=== PATIENT | female | born 1965 | race Two or more races ===

== ENCOUNTER 2019-03-13 10:15 | Emergency (ER) | payer SELFPAY ==
[~2019-03-13] VITALS: Ht 152.4 cm; Wt 63.5 kg
[2019-03-13 10:26] VITALS: BP 157/70
[2019-03-13] MEDS ORDERED: UNOBMED (10:26)
--- NOTE | 2019-03-13 10:39 | Emergency Room Report ---
History of Present Illness General Chief Complaint: Earache Source: Patient Present Illness HPI Patient presents with complaints of increased hearing loss reports that about a month ago she had cold-like symptoms with runny nose and congestion About 7 to 10 days after that she started having decreased hearing from the right ear over the past several days now she feels Decreased hearing from the left ear Denies any headache there was some report of pressure on both temporal areas however denies any visual changes denies any chest pain or shortness of breath Denies any Dizzy symptoms denies any recent loud noise or trauma Allergies: Coded Allergies: No Known Allergies (Unverified , 03/13/19) Patient History Past Medical History: see triage record Pertinent Family History: none Last Menstrual Period: menopause Reviewed Nursing Documentation: PMH: Agreed; PSxH: Agreed Nursing Documentation-PMH Past Medical History: No History, Except For Hx Hypertension: Yes Review of Systems All Other Systems: negative except mentioned in HPI Physical Exam Vital Signs Date Time Temp Pulse Resp B/P (MAP) Pulse Ox O2 Delivery O2 Flow Rate FiO2 03/13/19 10:22 98.4 57 16 157/70 (99) 97 Room Air Sp02 EP Interpretation: reviewed, normal General Appearance: well appearing, no apparent distress Head: normocephalic, atraumatic Eyes: bilateral eye PERRL, bilateral eye EOMI ENT: normal pharynx, uvula midline, other - Patient is able to hear shuffling of fingers on both sides however feels somewhat decreased in the right compared to the left,, tympanic membranes are intact there is some mild bulging bilaterally, indicative of possible fluid canal is clear Neck: full range of motion, supple, no meningismus, no bony tend Respiratory: lungs clear, normal breath sounds, no rhonchi, no respiratory distress, no retraction, no accessory muscle use Cardiovascular #1: normal peripheral pulses, regular rate, rhythm, no edema, no gallop, no JVD, no murmur Gastrointestinal: normal bowel sounds, non tender, soft, no mass, no organomegaly, non-distended, no guarding, no hernia, no pulsatile mass, no rebound Genitourinary: no CVA tenderness Musculoskeletal: normal inspection Neurologic: oriented x3, responsive, motor strength/tone normal, sensory intact Psychiatric: mood/affect normal Skin: no rash Lymphatic: normal inspection, no adenopathy Medical Decision Making Diagnostic Impression: Primary Impression: Hearing loss ER Course Given the history exam and presentation patient's other neurological exam is otherwise at baseline levels There is some relation with URI symptoms patient will be treated conservatively at this time I do not see the patient meeting criteria for acute MRI or further testing Patient will have close follow-up with her primary physician for further ENT referral as needed Last Vital Signs Date Time Temp Pulse Resp B/P (MAP) Pulse Ox O2 Delivery O2 Flow Rate FiO2 03/13/19 10:26 98.4 16 157/70 97 Room Air 03/13/19 10:22 57 Status: unchanged Disposition: HOME, SELF-CARE Condition: Stable Referrals: NOT CHOSEN IPA/MD,REFERRING (PCP) Additional Instructions: Patient is provided with the discharge instructions notified to follow up with primary doctor in the next 2-3 days otherwise return to the er with any worsening symptoms. Please note that this report is being documented using [employer] technology. This can lead to erroneous entry secondary to incorrect interpretation by the dictating instrument. Trevin Ragland DO Mar 13, 2019 10:39
--- NOTE | 2019-03-13 10:42 | NUR ---
ED Nurse Note: pt walked in from home c/o bilateral hearing loss x 3 weeks and feeling numbness on LT and RT side of her head ermd eval done awaiting nsg orders . pt does not recall her home meds.
[2019-03-13] MEDS ORDERED: ZYRTEC10 MG ORAL (10:46)
[2019-03-13] MEDS ORDERED: MEDROL DOSEPAK4 MG ORAL (10:46)
[2019-03-13 10:53] VITALS: BP 157/70
--- NOTE | 2019-03-13 10:54 | NUR ---
ED Nurse Note: No NSG orders Pt cleared by health care Provider for discharge. DC instructions/prescription was given and explained to pt and verbalized understanding of teachings. All medical deviecs such as ID band removed. Pt is AAO x4, ambulatory with steady gait and left with all personal belongings.
== END 2019-03-13 10:56 | disposition home or self-care (01) ==
LOC: EMR 10:28
DX: H91.91 Unspecified hearing loss, right ear (principal); I10 Essential (primary) hypertension
CPT/HCPCS: 99282